=== PATIENT | female | born 1965 | race Caucasian/White ===

== ENCOUNTER 2016-08-10 19:35 | Emergency (ER) | payer SELFPAY ==
[~2016-08-10] VITALS: Ht 182.9 cm; Wt 81.8 kg
[~2016-08-10 19:35] MED LIST: GABA300C PO; GABA600T PO; HYDR-3307 PO; HYDR25CA PO; LEVE250T28 PO; PHEN50TA PO; PRAZ5CAP PO; TRAZ300T6 PO
[2016-08-10] MEDS ORDERED: LORazepam 1MG TABLET PO ONE (20:30)
[2016-08-10] MEDS ORDERED: THIAMINE 100MG TABLET PO ONE (20:30)
[2016-08-10 21:09] LABS: HEMOGLOBIN 14.9 g/dL (11.7-16.4)
[2016-08-10 21:13] LABS: BLOOD UREA NITROGEN 17 mg/dL (7-18)
[2016-08-10 21:17] LABS: ASPARTATE AMINO TRANSFERASE 33 U/L (15-37)
[2016-08-10 22:05] VITALS: BP 130/87
== END 2016-08-10 23:15 ==
LOC: MERGE 23:09 → ED 23:09
DX: R42 Dizziness and giddiness (principal); R50.9 Fever, unspecified; R53.1 Weakness; R05 Cough
CPT/HCPCS: 36415; 80053; 85025; 99284